=== PATIENT | female | born 1960 | race Caucasian/White ===

== ENCOUNTER 2021-06-06 11:50 | Emergency (ER) | payer BC, SELFPAY ==
--- NOTE | ~2021-06-06 | CT_ITS ---
EXAMINATION: CT brain wo con EXAM DATE: 06/06/2021 13:07 INDICATION: Worst headache of life . History of migraine headaches. TECHNIQUE: Spiral CT of the head was performed without contrast. Axial, coronal and sagittal images were reviewed. The dose-length product (DLP) for this examination was 605.33 mGy-cm. The exposure w as tailored according to patient size, and iterative reconstruction (ASIR) was used as additional dos e reduction technique. There is no prior study for comparison. FINDINGS: There is no acute intraparenchymal hemorrhage. No evidence of intraparenchymal brain mass lesion. No evidence of acute infarction. There is no mass effect or midline shift. The ventricles are normal in size. There are no extra-axial collections. There are no acute calvarial fractures. T he orbits are unremarkable. Soft tissue is unremarkable. The visualized sinuses and mastoid air bonnie ls are well aerated. IMPRESSION: No acute intracranial findings. Reviewed, dictated and finalized at location A. [employer]
[2021-06-06 11:55] VITALS: BP 154/99; PULSE 84; RESP 18; TEMP 36.2; O2SAT 99
[2021-06-06] MEDS: SODIUM CHLORIDE 0.9% IV 1,000 ML 999 ML IV CONT (13:48)
[2021-06-06] MEDS: diphenhydrAMINE HCl INJ 50 MG/ML VIAL 25 MG IV PUSH (13:52)
[2021-06-06] MEDS: KETOROLAC 15 MG/ML VIAL (*BKC) IV PUSH (13:53)
--- NOTE | 2021-06-06 15:25 | ED.GENADULT ---
HPI - General Adult General Chief complaint: Headache Stated complaint: headache Time Seen by Provider: 06/06/21 12:23 Source: patient Mode of arrival: ambulatory Limitations: no limitations History of Present Illness HPI narrative: Patient is a 61-year-old female with chief complaint of intense frontal headache over the past 4 days. Patient reports that she has recently gotten over Covid. Patient reports that she has a history of migraines but she has never had a migraine so intense that last as long as this morning. Patient denies having any neurological deficits, speech difficulty, facial asymmetry or motor function deficits. Patient reports she generally takes Excedrin and Imitrex but they do not abort the migraine that she has presently. Patient states that she saw her primary care doctor Ralf who instructed her to come to the ER for evaluation. Patient reports photophobia and nausea. Patient reports one episode of vomiting this the headache intensity. Patient denies any head injuries or syncopal episodes. Related Data Allergies Allergy/AdvReac Type Severity Reaction Status Date / Time No Known Allergies Allergy Verified 06/06/21 11:58 Review of Systems Review of Systems: CONSTITUTIONAL: Denies fever, chills, or sweats. EYES: Denies visual changes, redness, or discharge. ENT: Denies rhinorrhea, congestion, sore throat, or otalgia. CARDIOVASCULAR: Denies chest pain, palpitations, or edema. RESPIRATORY: Denies cough or dyspnea. GASTROINTESTINAL: Denies abdominal pain, nausea, vomiting, or diarrhea. GENITOURINARY: Denies dysuria or hematuria. SKIN: Denies rash or itching. MUSCULOSKELETAL: Denies back pain, joint pain, or myalgia. NEUROLOGIC: Reports headache, denies numbness, dizziness, or weakness. PSYCHIATRIC: Denies anxiety or depression. Exam Narrative: GENERAL: Well-appearing, well-nourished, appears uncomfortable shielding eyes from light. HEAD: Normocephalic, atraumatic. EYES: PERRLA and EOMI. CHEST: Clear to auscultation. No respiratory distress. No wheezes rales or rhonchi HEART: Regular rate and rhythm. No murmur heard. Normal peripheral pulses. SKIN: Warm, dry, no rash. NEURO: No focal deficits. Alert and oriented x3. Speech clear and appropriate. Patient symmetrical. Moves all extremities without weakness or deficit. PSYCH: Normal mood and affect. Course Vital Signs Vital signs: Vital Signs Temperature 97.1 F L 06/06/21 11:55 Pulse Rate 84 06/06/21 11:55 Respiratory Rate 18 06/06/21 11:55 Blood Pressure 154/99 H 06/06/21 11:55 Pulse Oximetry 99 06/06/21 11:55 Temperature 97.1 F L 06/06/21 11:55 Pulse Rate 78 06/06/21 15:45 Respiratory Rate 19 06/06/21 15:45 Blood Pressure 142/87 H 06/06/21 15:45 Pulse Oximetry 98 06/06/21 15:45 Medical Decision Making MDM Narrative Medical decision making narrative: Patient is CT is without abnormal findings. Patient has been given migraine cocktail for which she has had improvement of her headache. Patient has been instructed to follow-up with her primary care to discuss any potential changes to her migraine maintenance and treatment plan. Patient has been instructed to return to emergency department should she develop any neurologic deficits or any other emergent symptoms. Differential Diagnosis Differential Diagnosis: CVA, migraine, tumor Vital Signs Vital Signs: Vital Signs Temperature 97.1 F L 06/06/21 11:55 Pulse Rate 84 06/06/21 11:55 Respiratory Rate 18 06/06/21 11:55 Blood Pressure 154/99 H 06/06/21 11:55 Pulse Oximetry 99 06/06/21 11:55 Temperature 97.1 F L 06/06/21 11:55 Pulse Rate 78 06/06/21 15:45 Respiratory Rate 19 06/06/21 15:45 Blood Pressure 142/87 H 06/06/21 15:45 Pulse Oximetry 98 06/06/21 15:45 Imaging Data Radiologist's impression: ITS Impressions Head CT 06/06/21 13:08 IMPRESSION: No acute intracranial findings. Discharge Plan Discharge C
[2021-06-06 15:45] VITALS: BP 142/87; PULSE 78; RESP 19; O2SAT 98
== END 2021-06-06 15:48 | disposition home or self-care (01) ==
PROVIDERS: Emergency Provider Family Medicine; PCP Internal Medicine
DX: R51.9 Headache, unspecified (principal); Z86.16 Personal history of COVID-19
CPT/HCPCS: 70450; 96361; 96374; 96375; 99284; J1100; J1200; J1885; J7030

== ENCOUNTER 2021-08-21 00:30 | Day surgery (SDC) | payer BC, SELFPAY ==
[2021-08-14 13:25] VITALS: BMI 29.1
--- NOTE | 2021-08-20 17:22 | PM.HPGS ---
History of Present Illness History of Present Illness Consent: Risks, benefits, and alternatives have been discussed and questions answered. Patient agrees to proceed with procedure. Chief complaint: constipation Narrative: Altagracia Xiong is a 61 year old female referred for colon cancer screening. She is not aware of any family history of colon cancer. Review of Systems Review of Systems: All systems reviewed & are unremarkable except as noted in HPI and below PMFSH Social History Social History Smoking status: Never smoker Alcohol intake: former Substance use: current Substance use type: marijuana Other substance usage details: 3x a month Living arrangements: with family Spiritual care concerns: No Meds Home Medications and Allergies Home Medications Medication Instructions Recorded Confirmed Type atorvastatin 10 mg PO DAILY 08/14/21 08/21/21 History lisinopril 20 mg PO DAILY 08/14/21 08/14/21 History sumatriptan succinate 50 mg PO DAILY 08/14/21 08/14/21 History Allergies Allergy/AdvReac Type Severity Reaction Status Date / Time No Known Allergies Allergy Verified 08/21/21 06:51 Exam Resp: Auscultation: clear to auscultation bilaterally Cardio: Rate: regular rate Rhythm: regular rhythm GI: GI Palp: Yes Soft to palpation and No Tenderness to palpation present (GI) Assessment and Plan Assessment and plan (1) Colon cancer screening: Code(s): Z12.11 - Encounter for screening for malignant neoplasm of colon Status: Acute Assessment and Plan: Colonoscopy with possible biopsy or polypectomy or cautery or injection of substances.
[2021-08-21 06:52] VITALS: BP 127/73; PULSE 77; RESP 18; TEMP 36.5; O2SAT 99
[2021-08-21] MEDS: LACTATED RINGERS 1,000 ML 150 ML IV CONT (07:03)
--- NOTE | 2021-08-21 07:28 | WPDANESEPPF ---
Anes - Initial Pre Proc Eval Procedure: Operation Date: 08/21/21 08:00 Proposed Procedures p Colonoscopy - Mansoor Reyes MD Date/Time: 08/21/21 07:28 Surgeon: Mansoor Reyes MD Pre Op Diagnosis: constipation Patient Data Age: 61 Gender: F Height: 1.63 m Weight: 75.4 kg Last Vital Signs Temp 36.5 C 08/21/21 06:52 Pulse 77 08/21/21 06:52 Resp 18 08/21/21 06:52 BP 127/73 08/21/21 06:52 Pulse Ox 99 08/21/21 06:52 Allergies Allergy/AdvReac Type Severity Reaction Status Date / Time No Known Allergies Allergy Verified 08/21/21 06:51 Home Medications Medication Instructions Recorded Confirmed Type atorvastatin 10 mg PO DAILY 08/14/21 08/21/21 History lisinopril 20 mg PO DAILY 08/14/21 08/14/21 History sumatriptan succinate 50 mg PO DAILY 08/14/21 08/14/21 History Patient hx anesthesia problems: none Family hx anesthesia problems: none Results Review: All pre-operative results and documents have been reviewed as part of the pre-operative evaluation. [facility] Past Medical History Medical History (Updated 08/21/21 @ 07:32 by Valentín Kim MD) HTN (hypertension) Hyperlipidemia Overweight Surgical History Surgical History (Updated 08/21/21 @ 07:32 by Valentín Kim MD) H/O colonoscopy History of section Social History Social History Smoking status: Never smoker Alcohol intake: former Substance use: current Substance use type: marijuana Other substance usage details: 3x a month Living arrangements: with family Spiritual care concerns: No Anes - Eval Final PreProcedure Day of Procedure 08/21/21 07:28 Patient weight: overweight Heart: regular rate and rhythm Lungs: clear to auscultation Airway: Mallampati scale class II Neurological: alert and oriented Last oral intake: >/= 8 hours ASA classification: II Emergent: no Anesthetic plan: proceed Anesthesia type and monitoring: general GIVS and standard monitoring Results Review: All pre-operative results and documents have been reviewed as part of the pre-operative evaluation. Informed Consent: The patient's anesthetic plan and its attendant risks and benefits were discussed with the patient/family/POA. Questions were solicited and answers provided to the satisfaction of the patient/family/POA.
[2021-08-21 08:13] VITALS: BP 88/53; PULSE 78; RESP 15; O2SAT 95
[2021-08-21 08:23] VITALS: BP 89/51; PULSE 69; RESP 19; O2SAT 99
[2021-08-21 08:33] VITALS: BP 113/71; PULSE 59; RESP 16; O2SAT 99
== END 2021-08-21 08:45 | disposition home or self-care (01) ==
PROVIDERS: PCP Internal Medicine; Visit Provider Internal Medicine Gastroenterology
PROC: 0DJD8ZZ Inspection of Lower Intestinal Tract, Via Natural or Artificial Opening Endoscopic (ICD-10-PCS; CPT 45378; principal; 2021-08-21 08:00)
DX: Z12.11 Encounter for screening for malignant neoplasm of colon (principal); I10 Essential (primary) hypertension; E78.5 Hyperlipidemia, unspecified; F12.90 Cannabis use, unspecified, uncomplicated
CPT/HCPCS: 45378; J2704; J7120

== ENCOUNTER 2024-12-07 13:14 | Outpatient (CLI) | payer BC, SELFPAY ==
--- NOTE | ~2024-12-07 | DEXA_ITS ---
Bone Density Report Name: SHANDRA COREAS Age: 64 Sex: Female Ethnicity: White Date of : 1960 Indication: postmenopausal; screening for osteoporosis; height loss; Referring Provider: LYN, DENITA Ontiveros Study: Bone densitometry was performed. Exam Date: December 07, 2024 Accession number: [id number] Bone Density: Region BMD T-score Z-score Classification AP Spine(L1-L4) 0.893 -1.4 0.3 Osteopenia Femoral Neck (Left) 0.662 -1.7 -0.3 Osteopenia Total Hip (Left) 0.916 -0.2 0.9 Normal Femoral Neck (Right) 0.620 -2.1 -0.6 Osteopenia Total Hip (Right) 0.844 -0.8 0.3 Normal Total Hip Mean 0.880 -0.5 0.6 Normal World Health Organization criteria for BMD impression classify patients as: Normal (T-score at or above -1.0), Osteopenia (T-score between -1.0 and -2.5), or Osteoporosis (T-score at or below -2.5). 10-year Fracture Risk(1): Major Osteoporotic Fracture 10% Hip Fracture 1.4% Reported Risk Factors: [place] (), Neck BMD=0.620, BMI=29.3 (1) FRAX(R) Version 3.08. Fracture probability calculated for an untreated patient. Fracture probability may be lower if the patient has received treatment. Clinical Information Provided by Patient: Patient maximum height was 64 Menopause Age: 51 No regular weight bearing exercise Does not regularly consume dairy products Drinks caffeinated beverages Onset of menses at age 16 Number of children 3 Impression: The patient has low bone mass, based on the Right Femoral Neck T-score. The patient has an estimated ten-year risk of hip fracture of 1.4% and an estimated ten-year risk of major fracture of 10%, based on the WHO FRAX algorithm. Discussion: BONE DENSITY IS LOW AT ONE OR MORE SKELETAL SITES. This patient's lowest T-score is low at one or more skeletal sites. It meets the World Health Organization's (WHO) criteria for ?low bone mass? (T-score between -1.0 and -2.5). The patient's 10-year risk of fracture as calculated by FRAX is less than the threshold where pharmacological therapy is recommended by the National Osteoporosis Foundation (NOF). However, all treatment decisions require clinical judgment and consideration of individual patient factors, including patient preferences, comorbidities, previous drug use, risk factors not captured in the FRAX model (e.g., frailty, falls, vitamin D deficiency, increased bone turnover, interval significant decline in bone density) and possible under or overestimation of fracture risk by FRAX. The patient should follow a healthful lifestyle (good nutrition with adequate calcium and vitamin D, and appropriate weight-bearing exercise). Follow-Up: Consider repeating this study in 2 to 3 years to reassess this patient's status, or sooner if there is some new clinical indication. Reported by: CASTRO on 12/07/2024 1:35:00 PM. Reviewed, dictated and finalized at location A.
== END 2024-12-07 13:15 | disposition home or self-care (01) ==
LOC: MICIMG 13:16
PROVIDERS: PCP Internal Medicine; Visit Provider Internal Medicine
DX: Z78.0 Asymptomatic menopausal state (principal); M85.88 Other specified disorders of bone density and structure, other site; M85.852 Other specified disorders of bone density and structure, left thigh; M85.851 Other specified disorders of bone density and structure, right thigh
CPT/HCPCS: 77080